=== PATIENT | female | born 1965 | race Caucasian/White ===

== ENCOUNTER 2023-10-31 20:16 | Emergency (ER) | payer OTHER ==
[2023-10-31 20:23] VITALS: TEMP 97; BMI 26.9
[2023-10-31 20:39] LABS: EPI CELLS 15 /uL (0-25.1); HYALINE CASTS 0 /uL (0-3.1); URINE APPEARANCE CLEAR; URINE BACTERIA 9 /uL (0-1359); URINE BILIRUBIN NEGATIVE (NEGATIVE); URINE COLOR YELLOW; URINE GLUCOSE (UA) NEGATIVE (NEGATIVE); URINE KETONE NEGATIVE (NEGATIVE); URINE LEUK ESTERASE NEGATIVE (NEGATIVE); URINE NITRITE NEGATIVE (NEGATIVE); URINE PROTEIN NEGATIVE (NEGATIVE); URINE RBC 28 /uL (0-23.9); URINE UROBILINOGEN 0.2 mg/dL (0.2-1.0); URINE WBC 15 /uL (0-25.8)
[2023-10-31] MEDS ORDERED: KETOROLAC TROMETHAMINE 15 MG/ML VIAL ONE (20:49)
[2023-10-31] MEDS: KETOROLAC TROMETHAMINE 15 MG/ML VIAL IM ONE (20:54)
[2023-10-31 21:42] LABS: URINE CRYSTALS FEW /hpf
[2023-10-31] MEDS ORDERED: TAMSULOSIN HCL 0.4 MG CAP ONE (21:55)
[2023-10-31] MEDS: TAMSULOSIN HCL 0.4 MG CAP PO ONE (22:09)
[2023-10-31] MEDS: SODIUM CHLORIDE 0.9% 500 ML INFUS.BAG IV ONE (22:09)
[2023-10-31] MEDS: morphine CARPU-JECT 2 MG/1 ML DISP.SYRIN IVPUSH ONE (22:09)
[2023-10-31 22:14] LABS: BASO % 0.3 % (0-2.0); EOS % 0.4 % (0-4.5); HEMATOCRIT 35.2 % (32.4-45.2); HEMOGLOBIN 11.5 GM/dL (10.7-15.3); LYMPH % 12.3 % (8-40); MCH 29.2 pg (25.7-33.7); MCHC 32.6 g/dl (32.0-36.0); MEAN CELL VOLUME 89.7 fl (80-96); MEAN PLT VOLUME 7.4 fl (7.5-11.1); MONO % 6.7 % (3.8-10.2); NEUT % 80.3 % (42.8-82.8); PLATELET COUNT 366 10^3/uL (134-434); RBC 3.92 M/mm3 (3.60-5.2); RDW 14.9 % (11.6-15.6); WHITE BLOOD COUNT 12.4 K/mm3 (4.0-10.0)
[2023-10-31 22:34] VITALS: BP 114/61; PULSE 83; RESP 17
[2023-10-31 22:49] LABS: POTASSIUM 4.1 mmol/L (3.5-5.1)
[2023-10-31 22:51] LABS: CALCIUM 9.2 mg/dL (8.5-10.1)
[2023-10-31 22:52] LABS: ALBUMIN 3.8 g/dl (3.4-5.0); BLOOD UREA NITROGEN 21.9 mg/dL (7-18)
[2023-10-31 22:55] LABS: BILIRUBIN,TOTAL 0.2 mg/dL (0.2-1)
[2023-10-31 22:57] LABS: TOT PROT 7.4 g/dl (6.4-8.2)
== END 2023-10-31 23:30 | disposition home or self-care (01) ==
LOC: JER 20:16
PROC: 3E030GC Introduction of Other Therapeutic Substance into Peripheral Vein, Open Approach (ICD-10-PCS; principal; 2023-10-31)
PROC: 3E023GC Introduction of Other Therapeutic Substance into Muscle, Percutaneous Approach (ICD-10-PCS; 2023-10-31)
DX: N13.2 Hydronephrosis with renal and ureteral calculous obstruction (principal); R10.9 Unspecified abdominal pain; R11.0 Nausea
CPT/HCPCS: 36415; 74176-TC; 80053; 81003; 85025; 87086; 99284-25